=== PATIENT | male | born 1975 | race Two or more races ===

== ENCOUNTER 2024-06-17 18:44 | Emergency (ER) | payer MEDICAID, SELFPAY ==
[2024-06-17 19:08] VITALS: BP 121/74; PULSE 76; RESP 18; TEMP 37.2; O2SAT 99
[2024-06-17] MEDS: DIPHTH,PERTUSS(ACELL),TET VAC 0.5 ML SYR- ADULT IMi (19:50)
--- NOTE | 2024-06-18 02:31 | EDNOTE_ITS ---
ED Skin Abcess FB-RME/HPI General Chief complaint: Extremity Injury, Lower Stated complaint: RIGHT CALF SWELLING FROM SPIDER BITE Time Seen by Provider: 06/17/24 19:41 Arrival date/time: 06/17/24 18:44 49M with no significant PMH presents to ED with R lateral knee swelling after being punctured or possibly bit by some insect yesterday. Initially it was itchy. Patient went to PCP and got a shot of something that made the swelling go down. Patient was sent here for US to r/o DVT. Patient states some ABX were sent to his pharmacy, but he hasn't picked them up yet. Limitations: no limitations Related Data Allergies Allergy/AdvReac Type Severity Reaction Status Date / Time No Known Allergies Allergy Verified 06/17/24 18:48 Review of Systems Review of Systems Systems Reviewed: All systems reviewed, normal except as documented Constitutional Constitutional: Reports system reviewed and no additional complaints, except as documented, Denies fever(s) and Denies headache(s) ENT Ears, Nose, Mouth, and Throat: Denies disequilibrium and Denies headache(s) Cardiovascular Cardiovascular: Reports system reviewed and no additional complaints, except as documented, Denies chest pain and Denies dyspnea Respiratory Respiratory: Reports system reviewed and no additional complaints, except as documented, Denies cough and Denies dyspnea Gastrointestinal Gastrointestinal: Reports system reviewed and no additional complaints, except as documented, Denies abdominal pain, Denies nausea and Denies vomiting Integumentary/Breasts Skin/Breast: Reports as per HPI and Reports pruritus Neurologic Neurologic: Reports system reviewed and no additional complaints, except as documented, Denies confusion, Denies disequilibrium and Denies headache(s) Psychiatric Psychiatric: Denies confusion Past Medical History Social History SMOKING STATUS: Never smoker ED Exam General Limitations: Present no limitations General appearance: Present alert and in no apparent distress Head Head exam: Present atraumatic Eye Eye exam: Present normal appearance, PERRL and EOMI ENT ENT exam: Present normal exam, normal oropharynx and mucous membranes moist Neck Neck exam: Present normal inspection, full ROM and trachea midline Chest Chest inspection: Present normal inspection and symmetric chest wall rise Respiratory Respiratory exam: Present normal lung sounds bilaterally Cardiovascular Cardiovascular exam: Present regular rate, normal rhythm and normal heart sounds Abdominal Exam Abdominal exam: Present soft and normal bowel sounds Extremities Exam Extremities exam: Present full ROM Expanded Lower Extremity Exam Knee exam: Present full ROM and erythema (R area on R lateral knee) Back Exam Back exam: Present normal inspection and full ROM Neurological Exam Neurological exam: Present alert, oriented X3 and CN II-XII intact Psychiatric Psychiatric exam: Present normal affect and normal mood Skin Skin exam: Present warm, dry, intact and normal color Course Quality Measures none Orders Category Date Time Status TET,DIP/PERT AC (Adult)-Tdap [Boostrix Adult (Tdap) Med 06/17/24 19:42 Discontinued Vacc] 0.5 ml IMI .ONCE ONE Vital Signs Vital signs: Vital Signs Temperature 99.0 F 06/17/24 19:08 Pulse Rate 76 06/17/24 19:08 Respiratory Rate 18 06/17/24 19:08 Blood Pressure 121/74 06/17/24 19:08 Pulse Oximetry (%) 99 06/17/24 19:08 Oxygen Delivery Method Room Air 06/17/24 19:08 O2 at 99% on RA and WNLs Skin / Abscess / Foreign Body MDM Narrative MDM Narrative:: 49M with no significant PMH presents to ED with R lateral knee swelling after being punctured or possibly bit by some insect yesterday. Initially it was itchy. Patient went to PCP and got a shot of something that made the swelling go down. Patient was sent here for US to r/o DVT. Patient states some ABX were sent to his pharmacy, but he hasn't picked them up yet. Physical exam reveals no gross RLE swelling. Mild area of redness on R lateral knee. ROM intact. Patietn is afebrile, calm, and alert. Will update tdap as he hasn't had one in 5+ years. 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 Patient data External records reviewed:: None Clinical information provided by:: patient Social determinants that could affect healthcare access:: none Patient has the following chronic illnesses:: none How is presenting disease/condition affected by chronic disease/condition?: no chronic disease Evaluation data The following diagnostics were reviewed and interpreted by me:: other (specify) (none) Lab and/or radiology exams considered but not ordered:: not ordered Interpretation Summary: n/a Medications / Prescriptions Medications or Prescriptions considered but not ordered:: ordered Medication administrations:: Medication Administration History Discontinued Medications Diphtheria/Tetanus/Acell Pertussis (Diphth,Pertuss(Acell),Tet Vac 0.5 Ml Syr- Adult) 0.5 ml IMi .ONCE ONE Stop: 06/17/24 19:43 Last Admin: 06/17/24 19:50 Dose: 0.5 ml Documented By: MS chinchilla Consultations Consultation(s) initiated? (list below): No Diagnosis Skin/Abscess Differential Diagnosis: abscess of skin or subcutaneous tissue, viral exanthem, dermatophytosis, urticaria, herpes zoster, allergic reaction to drug, cellulitis, eczema, insect bites, impetigo, contact dermatitis and other (puncture wound, DVT) Most likely diagnosis given after review of the tests above:: puncture wound Admission Indicated Admission indicated?: not indicated Admission Request Was there a request for admission?: No Disposition Plan Disposition Plan: Discharge Discharge Attestation Discharge Attestation: The patient and all family members were given an opportunity to ask questions and understood the discharge instructions. Discharge instructions specifically effects, indications for sooner follow up or return to the emergency department, and the expected course of current diagnosis. Patient condition: Stable Discharge Plan Plan Patient Disposition: HOME (Self Care) Disposition Comment: Stable Patient condition on transfer: Stable Problem List Clinical Impression: Puncture wound Patient/Caregiver Discharge Instructions Discharge Activity: activity as tolerated Education Materials: ED Puncture Wound (General) Additional Instructions: Please follow-up with PCP within 24-48 hours and return immediately if symptoms worsen. Make sure to pickle processor ABX from PCP from pharmacy. Print Language: German Stand Alone Forms: Patient Portal Info Letter Vaccines Vaccines Given During Stay: TDaP LISSETTE/JOSE ALFREDO Supervising Physician ROULA Supervising Physician: Dr. Carson
== END 2024-06-17 20:00 | disposition home or self-care (01) ==
PROVIDERS: Emergency Provider Emergency Medicine
DX: S81.831A Puncture wound without foreign body, right lower leg, initial encounter (principal); W57.XXXA Bitten or stung by nonvenomous insect and other nonvenomous arthropods, initial encounter; Z23 Encounter for immunization
CPT/HCPCS: 90471; 90715; 99282